=== PATIENT | female | born 1955 | race African-American/Black ===

== ENCOUNTER 2019-05-11 15:07 | Emergency (ER) | payer MEDICAID ==
[2019-05-11] MEDS ORDERED: predniSONE 20 MG TABLET ONE (15:56)
[2019-05-11] MEDS ORDERED: diphenhydrAMINE HCL 50 MG CAPSULE ONE (15:56)
[2019-05-11] MEDS ORDERED: diphenhydrAMINE HCL 25 MG CAPSULE PO ONE (16:00)
[2019-05-11] MEDS ORDERED: predniSONE 20 MG TABLET PO ONE (16:00)
== END 2019-05-11 16:02 | disposition home or self-care (01) ==
DX: L29.9 Pruritus, unspecified (principal); Z91.040 Latex allergy status
CPT/HCPCS: 99283; J7512; Q0163